=== PATIENT | male | born 1990 | race Caucasian/White ===

== ENCOUNTER 2018-10-10 13:26 | Emergency (ER) | payer SELFPAY ==
[~2018-10-10] VITALS: Ht 190.5 cm; Wt 134.1 kg
--- NOTE | 2018-10-10 14:30 | REP ---
LEFT HAND SERIES: Four views. HISTORY: Injury in a fall. FINDINGS: Four views of the left hand demonstrate moderate soft tissue swelling dorsally over the metacarpals and carpal on lateral film. No fracture is seen. No evidence of opaque foreign body noted. IMPRESSION: Moderate soft tissue swelling dorsally. No fracture seen. Electronically Signed by Gm Brenner MD 10/10/2018 03:13 P
[2018-10-10] MEDS ORDERED: NAPR-50 PO (15:03)
[2018-10-10] MEDS ORDERED: NAPROXEN 250 MG TAB PO ONE (15:15)
[2018-10-10 15:16] VITALS: BP 135/78
== END 2018-10-10 15:22 | disposition home or self-care (01) ==
LOC: M ED 13:26
DX: S63.512A Sprain of carpal joint of left wrist, initial encounter (principal); S60.511A Abrasion of right hand, initial encounter; W01.0XXA Fall on same level from slipping, tripping and stumbling without subsequent striking against object, initial encounter; Y92.410 Unspecified street and highway as the place of occurrence of the external cause

== ENCOUNTER 2019-10-11 20:01 | Emergency (ER) | payer OTHER, SELFPAY ==
[~2019-10-11] VITALS: Ht 193 cm; Wt 140.9 kg
[~2019-10-11 20:01] MED LIST: NAPR-837 PO
[2019-10-11 20:18] VITALS: BP 137/86
[2019-10-11] MEDS ORDERED: VENTAER INH (20:42)
--- NOTE | 2019-10-11 23:08 | REP ---
Clinical: Shortness of breath. History of vaping. Comparison: None . Technique: PA and lateral. Findings: The mediastinum and cardiac silhouette are normal. The lung aranda are clear and without acute consolidation, effusion, or pneumothorax. The skeletal structures are intact and normal. Impression: 1. No acute cardiopulmonary process. Electronically Signed by John Parker MD 10/11/2019 10:59 P
== END 2019-10-11 21:00 | disposition home or self-care (01) ==
LOC: M ED 20:01
DX: J98.01 Acute bronchospasm (principal); F17.290 Nicotine dependence, other tobacco product, uncomplicated; R51 Headache; Z88.0 Allergy status to penicillin